=== PATIENT | male | born 1960 | race Caucasian/White ===

== ENCOUNTER → 2021-01-12 | Outpatient (CLI) | payer BC ==
[~2021-01-12] MED LIST: COLACE100 MG PO; HYDROCHLOROTHIA25 MG PO; HYDROCODON-ACE1 EAC2 PO; KLONOPIN1 MG PO; METAMUCIL PACK3.4 GM PO; NEXIUM40 MG PO; PERCOCET 5-3251 EACH PO; ROPINIROLE HCL1 MG PO; STOOL SOFTENER100 M1 PO; SYNTHROID125 MCG PO; VITAMIN C500 M4 PO; ZESTRIL40 MG PO; ZOFRAN4 MG PO
[2021-01-12 08:06] LABS: HEMOGLOBIN 14.3 gm/dl (14.0-17.5); RED BLOOD COUNT 4.65 M/UL (4.20-5.50); WHITE BLOOD COUNT 4.8 K/UL (4.5-11.0)
== END ==
LOC: LAB 07:31
PROVIDERS: Family Medicine
DX: Z12.5 Encounter for screening for malignant neoplasm of prostate (principal); E78.5 Hyperlipidemia, unspecified; E55.9 Vitamin D deficiency, unspecified; I10 Essential (primary) hypertension; E03.9 Hypothyroidism, unspecified
CPT/HCPCS: 36415; 80053; 80061; 84153; 84439; 84443; 85027

== ENCOUNTER → 2021-01-18 | Outpatient (CLI) | payer BC | LOC: OPSV2 07:48 | DX: Z01.810 Encounter for preprocedural cardiovascular examination (principal) | CPT/HCPCS: 93005 ==

== ENCOUNTER → 2021-01-19 | Day surgery (SDC) | payer BC | END | disposition home or self-care (01) | LOC: OR 07:59 | PROVIDERS: Surgery | PROC: 06BY0ZC Excision of Hemorrhoidal Plexus, Open Approach (ICD-10-PCS; principal; 2021-01-19 12:00) | PROC: 0DJD7ZZ Inspection of Lower Intestinal Tract, Via Natural or Artificial Opening (ICD-10-PCS; 2021-01-19 12:00) | DX: K64.8 Other hemorrhoids (principal); K21.9 Gastro-esophageal reflux disease without esophagitis; I10 Essential (primary) hypertension; E03.9 Hypothyroidism, unspecified; E78.5 Hyperlipidemia, unspecified; M19.90 Unspecified osteoarthritis, unspecified site; N40.0 Benign prostatic hyperplasia without lower urinary tract symptoms; I51.89 Other ill-defined heart diseases; K76.0 Fatty (change of) liver, not elsewhere classified; M10.9 Gout, unspecified; E78.00 Pure hypercholesterolemia, unspecified; G47.00 Insomnia, unspecified; G47.33 Obstructive sleep apnea (adult) (pediatric); E53.8 Deficiency of other specified B group vitamins; E66.01 Morbid (severe) obesity due to excess calories; Z68.39 Body mass index [BMI] 39.0-39.9, adult; Z20.822 Contact with and (suspected) exposure to COVID-19; Z79.899 Other long term (current) drug therapy; Z87.891 Personal history of nicotine dependence; Z88.5 Allergy status to narcotic agent | CPT/HCPCS: J1100; J2001; J2250; J2405; J2704; J3010; J7030; J7120 ==

== ENCOUNTER 2021-01-21 20:56 | Emergency (ER) | payer BC ==
[~2021-01-21 20:56] MED LIST changes: -HYDROCODON-ACE1 EAC2 PO; -STOOL SOFTENER100 M1 PO
[2021-02-15] MEDS ORDERED: STOOL SOFTENER100 M1 PO (15:23)
[2021-02-16] MEDS ORDERED: HYDROCODON-ACE1 EAC2 PO (12:14)
== END 2021-01-21 23:45 | disposition home or self-care (01) ==
LOC: ER1 20:56
DX: G89.18 Other acute postprocedural pain (principal); K62.89 Other specified diseases of anus and rectum; K21.9 Gastro-esophageal reflux disease without esophagitis; I10 Essential (primary) hypertension; E03.9 Hypothyroidism, unspecified
CPT/HCPCS: 99283

== ENCOUNTER → 2021-02-16 | Day surgery (SDC) | payer BC ==
[~2021-02-16] MED LIST changes: +HYDROCODON-ACE1 EAC2 PO; +STOOL SOFTENER100 M1 PO
== END | disposition home or self-care (01) ==
LOC: OR 07:43
PROVIDERS: Surgery
DX: K60.2 Anal fissure, unspecified (principal); K62.89 Other specified diseases of anus and rectum; I10 Essential (primary) hypertension; E78.5 Hyperlipidemia, unspecified; E03.9 Hypothyroidism, unspecified; F41.9 Anxiety disorder, unspecified; M19.90 Unspecified osteoarthritis, unspecified site; N40.0 Benign prostatic hyperplasia without lower urinary tract symptoms; K21.9 Gastro-esophageal reflux disease without esophagitis; M10.9 Gout, unspecified; G47.00 Insomnia, unspecified; G47.33 Obstructive sleep apnea (adult) (pediatric); G25.81 Restless legs syndrome; E66.01 Morbid (severe) obesity due to excess calories; Z87.891 Personal history of nicotine dependence; Z68.37 Body mass index [BMI] 37.0-37.9, adult; Z88.5 Allergy status to narcotic agent; Z79.899 Other long term (current) drug therapy
CPT/HCPCS: 80048; J1100; J2001; J2250; J2405; J2704; J3010; J7030; J7120

== ENCOUNTER → 2021-04-03 | Outpatient (CLI) | payer BC ==
[2021-04-03 10:07] LABS: HEMOGLOBIN 12.5 gm/dl (14.0-17.5); RED BLOOD COUNT 4.09 M/UL (4.20-5.50); WHITE BLOOD COUNT 5.9 K/UL (4.5-11.0)
== END ==
LOC: LAB 08:46
PROVIDERS: Colon & Rectal Surgery
DX: R06.02 Shortness of breath (principal); K60.2 Anal fissure, unspecified
CPT/HCPCS: 36415; 71046; 80048; 85027

== ENCOUNTER → 2021-10-10 | Outpatient (CLI) | payer BC ==
[2021-10-10 12:13] LABS: RED BLOOD COUNT 4.4 M/UL (4.20-5.50); WHITE BLOOD COUNT 4.4 K/UL (4.5-11.0)
[2021-10-10 12:38] LABS: BUN/CREATININE RATIO 11 (0-10)
== END ==
LOC: ECHO 11:15 → NM 13:00
PROVIDERS: Family Medicine
DX: R07.9 Chest pain, unspecified (principal); E78.5 Hyperlipidemia, unspecified; I10 Essential (primary) hypertension; E55.9 Vitamin D deficiency, unspecified
CPT/HCPCS: ECHO; 36415; 78452; 80053; 80061; 83735; 84439; 84443; 85025; 93017; 93306; A9502

== ENCOUNTER → 2022-01-03 | Outpatient (CLI) | payer BC ==
[2022-01-04 23:07] LABS: AMPHETAMINES, URINE Negative ng/mL (Cutoff=1000); BARBITURATE Negative ng/mL (Cutoff=200); BENZODIAZEPINES Negative ng/mL (Cutoff=200); CANNABINOIDS Negative ng/mL (Cutoff=20); COCAINE (METABOLITE) Negative ng/mL (Cutoff=300); CREATININE 177.8 mg/dL (20.0-300.0); MEPERIDINE Negative ng/mL (Cutoff=200); METHADONE Negative ng/mL (Cutoff=300); OPIATES Negative ng/mL (Cutoff=300); PHENCYCLIDINE Negative ng/mL (Cutoff=25); PROPOXYPHENE Negative ng/mL (Cutoff=300)
== END ==
LOC: LAB 07:43
PROVIDERS: Family Medicine
DX: E03.9 Hypothyroidism, unspecified (principal); F41.9 Anxiety disorder, unspecified; G47.00 Insomnia, unspecified; Z79.899 Other long term (current) drug therapy
CPT/HCPCS: 36415; 80053; 80307; 83735; 84439; 84443

== ENCOUNTER → 2022-03-09 | Outpatient (CLI) | payer BC ==
[2022-03-09 09:04] LABS: HEMOGLOBIN 13.6 gm/dl (14.0-17.5); RED BLOOD COUNT 4.55 M/UL (4.20-5.50); WHITE BLOOD COUNT 4.1 K/UL (4.5-11.0)
[2022-03-09 09:37] LABS: BUN/CREATININE RATIO 13 (0-10)
== END ==
LOC: LAB 08:03
PROVIDERS: Family Medicine
DX: E03.9 Hypothyroidism, unspecified (principal); E78.5 Hyperlipidemia, unspecified; I10 Essential (primary) hypertension; E55.9 Vitamin D deficiency, unspecified; E53.8 Deficiency of other specified B group vitamins
CPT/HCPCS: 36415; 80053; 80061; 82607; 83735; 84439; 84443; 85027